=== PATIENT | female | born 1970 | race Caucasian/White ===

== ENCOUNTER 2017-08-31 09:40 | Emergency (ER) | payer OTHER ==
[~2017-08-31] VITALS: Ht 162.6 cm; Wt 90.7 kg
[2017-08-31] MEDS ORDERED: FLONASE 0.05%50 MCG NASAL (10:03)
[2017-08-31] MEDS ORDERED: ZYRTEC10 M5 PO (10:03)
[2017-08-31] MEDS ORDERED: ADDERALL 5 MG TA5 MG PO (10:04)
[2017-08-31] MEDS ORDERED: PHENERGAN 25 MG25 M1 PO (11:15)
[2017-08-31] MEDS ORDERED: ROBAXIN 750 MG750 M1 PO (11:15)
[2017-08-31] MEDS ORDERED: HYDROCODONE-AP1 EAC6 PO (11:15)
[2017-08-31] MEDS ORDERED: IBUPROFEN 800800 M1 PO (11:15)
[2017-08-31 11:56] VITALS: BP 184/84
== END 2017-08-31 11:57 | disposition home or self-care (01) ==
LOC: M.ERS 09:40
DX: R51 Headache (principal); M54.2 Cervicalgia